=== PATIENT | female | born 1965 | race Caucasian/White ===

== ENCOUNTER 2021-09-20 12:53 | Outpatient (CLI) | payer OTHER, SELFPAY ==
[2021-09-20 13:11] VITALS: BP 109/73; PULSE 129; RESP 16; TEMP 37.1; O2SAT 98; BMI 28.9
[2021-09-20] MEDS: 0.9% Saline Lock 10 ML Syringe IV (13:13)
[2021-09-20 14:27] VITALS: BP 153/90; PULSE 110; RESP 16; TEMP 37; O2SAT 99
[2021-09-20 15:13] VITALS: BP 144/94; PULSE 108; RESP 16; TEMP 36.9; O2SAT 100
== END 2021-09-20 15:18 | disposition home or self-care (01) ==
LOC: MS3OUT 12:54 → MS3 12:54
PROVIDERS: Referring Provider Nurse Practitioner Adult Health; Visit Provider Nurse Practitioner Adult Health
DX: Z23 Encounter for immunization (principal); U07.1 COVID-19
CPT/HCPCS: J7050; M0245; Q0245; A4216